=== PATIENT | male | born 1955 | race Caucasian/White ===

== ENCOUNTER 2019-05-06 20:52 | Emergency (ER) | payer SELFPAY ==
[~2019-05-06] VITALS: Ht 175.3 cm; Wt 82.0 kg
[2019-05-06] MEDS ORDERED: TETANUS, DIPHTHERIA, PERTUSSIS VAC/PF 0.5ML (>7YR OLD) IM ONE (23:45)
[2019-05-06] MEDS ORDERED: BACITRACIN ZINC OINT UDPKT TOP ONE (23:45)
[2019-05-06] MEDS ORDERED: LIDOCAINE 1%/EPI 1:100,000 10 ML VIAL IJ ONE (23:45)
[2019-05-06] MEDS ORDERED: ACETAMINOPHEN 325MG TABLET PO ONE (23:45)
[2019-05-07] MEDS ORDERED: LIDOCAINE HCL/EPINEPHRINE 1%-EPI 1:100,000 20 ML VIAL INFIL SCH (00:45)
[2019-05-07 02:30] VITALS: BP 138/80
== END 2019-05-07 04:00 | disposition home or self-care (01) ==
LOC: ER 21:00
DX: S01.81XA Laceration without foreign body of other part of head, initial encounter (principal); Y08.89XA Assault by other specified means, initial encounter; Y93.89 Activity, other specified; Y92.89 Other specified places as the place of occurrence of the external cause; Y99.8 Other external cause status; F17.290 Nicotine dependence, other tobacco product, uncomplicated; E78.00 Pure hypercholesterolemia, unspecified; Z98.61 Coronary angioplasty status
CPT/HCPCS: 12013; 70450; 70486; 90471; 90715; 99284; 99406; J3490; Z7610

== ENCOUNTER 2024-07-21 18:44 | Emergency (ER) | payer MEDICARE ==
[~2024-07-21] VITALS: Ht 170.2 cm; Wt 63.0 kg
[2024-07-21 18:50] VITALS: BP 157/95; PULSE 96; RESP 20; TEMP 37.1; O2SAT 97
== END 2024-07-21 21:10 | disposition left against medical advice (07) ==
LOC: ER 18:44
DX: M25.559 Pain in unspecified hip (principal); Z53.21 Procedure and treatment not carried out due to patient leaving prior to being seen by health care provider

== ENCOUNTER 2024-07-23 06:17 | Emergency (ER) | payer MEDICARE, OTHER ==
[~2024-07-23] VITALS: Ht 172.7 cm; Wt 75.0 kg
[2024-07-23 06:19] VITALS: TEMP 37.1; O2SAT 99
[2024-07-23 07:24] VITALS: BP 140/95; PULSE 88; RESP 16
[2024-07-23] MEDS: KETOROLAC 30MG/ML VIAL IM ONE (07:24)
== END 2024-07-23 07:29 | disposition home or self-care (01) ==
LOC: ER 06:17
DX: M16.12 Unilateral primary osteoarthritis, left hip (principal); E78.00 Pure hypercholesterolemia, unspecified; I11.9 Hypertensive heart disease without heart failure; F10.90 Alcohol use, unspecified, uncomplicated; Z98.890 Other specified postprocedural states; Y90.9 Presence of alcohol in blood, level not specified
CPT/HCPCS: 99283; 73502; 96372; J1885